=== PATIENT | female | born 1975 | race Caucasian/White ===

== ENCOUNTER 2017-07-16 19:48 | Emergency (ER) | payer SELFPAY | END 2017-07-16 21:28 | disposition home or self-care (01) | LOC: FER 19:48 | DX: L02.412 Cutaneous abscess of left axilla (principal); F17.210 Nicotine dependence, cigarettes, uncomplicated; Z98.51 Tubal ligation status; Z88.1 Allergy status to other antibiotic agents; Z88.0 Allergy status to penicillin; Z79.82 Long term (current) use of aspirin ==

== ENCOUNTER 2017-07-18 20:52 | Emergency (ER) | payer SELFPAY | END 2017-07-18 21:03 | disposition left against medical advice (07) | LOC: FER 20:52 | DX: Z48.817 Encounter for surgical aftercare following surgery on the skin and subcutaneous tissue (principal); Z53.21 Procedure and treatment not carried out due to patient leaving prior to being seen by health care provider ==

== ENCOUNTER 2022-06-24 04:00 | Emergency (ER) | payer OTHER ==
[~2022-06-24 04:00] MED LIST: ASPIRIN CHEWABL81 MG PO; COMPACT COMPRE1 EACH INH; LEVAQUIN750 MG PO; MACROBID100 MG PO; PULMICORT0.5 MG/2 M NEB; XOPENEX (11.25 MG/3 INH; ZOFRAN4 MG PO
== END 2022-06-24 07:20 | disposition home or self-care (01) ==
LOC: FER 04:00
DX: G43.909 Migraine, unspecified, not intractable, without status migrainosus (principal); F17.200 Nicotine dependence, unspecified, uncomplicated; Z88.0 Allergy status to penicillin
CPT/HCPCS: 70450; J0780; J1200; J1885; J2930; J3475; J7030; J7050